=== PATIENT | male | born 1965 | race Caucasian/White ===

== ENCOUNTER 2020-08-07 08:43 | Day surgery (SDC) | payer OTHER ==
[2020-08-07] MEDS ORDERED: Sodium Chloride 0.9% 10 ML Syringe FLUSH PRN (08:45)
[2020-08-07] MEDS ORDERED: Lactated Ringers 1,000 ML IV SCH (08:45)
[2020-08-07] MEDS ORDERED: Midazolam 1 MG/ML 2 ML SDV ONE ×2 (08:48→09:36)
[2020-08-07] MEDS ORDERED: Propofol 200 MG/20 ML SDV ONE ×2 (08:48→09:36)
--- NOTE | 2020-08-07 09:30 | PCM.HPR ---
H & P Addendum review - H & P Addendum Review Date of Original H & P: 07/22/20 Date Reviewed: 08/07/20 Time Reviewed: 09:29 Patient was Examined: No Changes
--- NOTE | 2020-08-07 10:07 | PCM.OPNOTE ---
- General Post-Op/Procedure Note Date of Surgery/Procedure: 08/07/20 Operative Procedure(s): Colonoscopy with polypectomy Findings: Large Asc Colon Polyp Pre Op Diagnosis: Pos Cologuard Post-Op Diagnosis: Same Anesthesia Technique: MAC Primary Surgeon: Kit Juárez Anesthesia Provider: Carmel Osobrn EBL in mLs: 0 Complications: None Condition: Good
--- NOTE | 2020-08-07 12:13 | OR ---
Date of Procedure: 08/07/2020 PREOPERATIVE DIAGNOSIS: Positive Cologuard. POSTOPERATIVE DIAGNOSIS: Proximal ascending colon polyp. PROCEDURE: Colonoscopy with polypectomy. ANESTHESIA: IV sedation. PROCEDURE IN DETAIL: Patient was brought to the procedure room where he was placed on his left side and IV sedation administered. Digital rectal exam was performed, which was normal. Colonoscope was inserted and advanced to the level of the cecum without difficulty. Cecal position was confirmed by identifying the appendiceal lumen and the ileocecal valve. Prep was good and surfaces were well visualized. In the proximal ascending colon, there was a large semipedunculated tubulovillous polyp measuring approximately 1.5 cm in diameter. Stalk base appeared to be approximately 5 to 7 mm in diameter. I was able to get the snare around this and transected with electrocautery providing complete resection and good hemostasis. A Horta Net was used to grab the polyp and this was then removed without difficulty. The remaining ascending, transverse, and descending colon were normal. Sigmoid colon and rectum were normal. Retroflexion was normal. Air was removed and the scope withdrawn. Patient tolerated the procedure well and returned to recovery in stable condition. PLAN: Patient will be contacted with the pathology report when it returns. I would recommend surveillance colonoscopy again in 3 years if no concerning features are present with the polyp. BRIANDA HUDSON MD /[id number]
== END 2020-08-07 10:54 | disposition home or self-care (01) ==
LOC: LL.SDS 08:43
PROVIDERS: ATTEND Surgery
DX: D12.2 Benign neoplasm of ascending colon (principal); I10 Essential (primary) hypertension; K21.9 Gastro-esophageal reflux disease without esophagitis; E66.9 Obesity, unspecified; Z68.31 Body mass index [BMI] 31.0-31.9, adult; Z01.812 Encounter for preprocedural laboratory examination; Z20.822 Contact with and (suspected) exposure to COVID-19; Z79.899 Other long term (current) drug therapy; Z88.0 Allergy status to penicillin; Z87.891 Personal history of nicotine dependence; Z12.5 Encounter for screening for malignant neoplasm of prostate
CPT/HCPCS: 45385; 87635; J2250; J2704; J7120; 00812; U0002

== ENCOUNTER 2023-11-10 12:25 | Day surgery (SDC) | payer BC, OTHER ==
[~2023-11-10 12:25] MED LIST: Propofol 200 MG/20 ML SDV ONE
[2023-11-10] MEDS ORDERED: Sodium Chloride 0.9% 10 ML Syringe FLUSH PRN (12:30)
[2023-11-10] MEDS: Lactated Ringers 1,000 ML IV SCH (13:27)
[2023-11-10] MEDS ORDERED: Propofol 200 MG/20 ML SDV ONE (13:49)
== END 2023-11-10 14:35 | disposition home or self-care (01) ==
LOC: LL.SDS 12:25
PROVIDERS: ATTEND Surgery
DX: Z12.11 Encounter for screening for malignant neoplasm of colon (principal); K57.30 Diverticulosis of large intestine without perforation or abscess without bleeding; Z86.010 Personal history of colon polyps; I10 Essential (primary) hypertension; K21.9 Gastro-esophageal reflux disease without esophagitis; E78.5 Hyperlipidemia, unspecified; Z79.899 Other long term (current) drug therapy; Z88.0 Allergy status to penicillin
CPT/HCPCS: J2704; J7120